=== PATIENT | female | born 1990 | race Caucasian/White ===

== ENCOUNTER 2018-12-16 10:47 | Emergency (ER) | payer OTHER ==
[~2018-12-16] VITALS: Ht 167.6 cm; Wt 69.9 kg
== END 2018-12-16 13:48 | disposition home or self-care (01) ==
LOC: ER 10:47
DX: S80.862A Insect bite (nonvenomous), left lower leg, initial encounter (principal); S80.861A Insect bite (nonvenomous), right lower leg, initial encounter; S30.860A Insect bite (nonvenomous) of lower back and pelvis, initial encounter; W57.XXXA Bitten or stung by nonvenomous insect and other nonvenomous arthropods, initial encounter; Y93.89 Activity, other specified; Y92.833 Campsite as the place of occurrence of the external cause; Y99.8 Other external cause status

== ENCOUNTER 2019-05-11 14:54 | Emergency (ER) | payer OTHER ==
[~2019-05-11] VITALS: Ht 162.6 cm; Wt 75.3 kg
[2019-05-11] MEDS ORDERED: LOTRISONE CREAM45 GM TOP (18:45)
[2019-05-11] MEDS ORDERED: ALLEGRA ALLERG180 MG PO (18:45)
== END 2019-05-11 18:57 | disposition home or self-care (01) ==
LOC: ER 14:54
DX: R21 Rash and other nonspecific skin eruption (principal)